=== PATIENT | female | born 1965 | race Native Hawaiian/Other Pacific Islander ===

== ENCOUNTER 2017-08-11 12:26 | Emergency (ER) | payer OTHER ==
[~2017-08-11] VITALS: Ht 162.6 cm; Wt 63.5 kg
[2017-08-11 13:06] LABS: PLATELET COUNT 267 K/uL (152-353)
== END 2017-08-11 13:52 | disposition home or self-care (01) ==
LOC: ED 12:26
DX: S50.01XA Contusion of right elbow, initial encounter (principal); M25.562 Pain in left knee; W19.XXXA Unspecified fall, initial encounter
CPT/HCPCS: 85027; 96372; 99283; J1885; J2405

== ENCOUNTER 2017-09-19 21:42 | Emergency (ER) | payer OTHER ==
[~2017-09-19] VITALS: Ht 160 cm; Wt 66.7 kg
[2017-09-19] MEDS ORDERED: DILTIAZEM HCL240 M2 PO (22:17)
[2017-09-19] MEDS ORDERED: ASPIRIN81 M2 PO (22:18)
[2017-09-19] MEDS ORDERED: ALLERGY10 MG PO (22:18)
[2017-09-19] MEDS ORDERED: TOPAMAX25 MG OR (22:19)
[2017-09-19 23:01] LABS: PLATELET COUNT 269 K/uL (152-353)
[2017-09-19 23:08] LABS: POTASSIUM 2.6 mmol/L (3.6-5.2)
[2017-09-20 00:02] VITALS: BP 134/87; TEMP 98.4
== END 2017-09-20 00:02 | disposition home or self-care (01) ==
LOC: ED 21:42
DX: R41.82 Altered mental status, unspecified (principal); F12.10 Cannabis abuse, uncomplicated
CPT/HCPCS: 36415; 80053; 80307; 81000; 84484; 85027; 93005; 99283